=== PATIENT | male | born 1985 | race Caucasian/White ===

== ENCOUNTER 2022-11-11 17:18 | Emergency (ER) | payer OTHER, SELFPAY ==
--- NOTE | ~2022-11-11 | XR_ITS ---
EXAM: XR abdomen/kub 1V DATE: 11/11/2022 19:07 HISTORY: constipation with low abdominal pain X's 3 days . COMPARISON: None available. FINDINGS: Clear lung bases. Normal bowel gas pattern. No organomegaly. No abnormal abdominal calcifi cation. Regional bones and soft tissues normal for age. IMPRESSION: Normal abdominal radiograph findings. Reviewed, dictated and finalized at location K.
[2022-11-11 17:31] VITALS: BP 139/84; PULSE 88; RESP 18; TEMP 36.9; O2SAT 100
--- NOTE | 2022-11-11 17:43 | ED.ABDPAIN ---
HPI - Abdominal Pain General Chief Complaint: Abdominal Pain Stated Complaint: constipation Time Seen by Provider: 11/11/22 17:44 Source: patient Mode of arrival: ambulatory Limitations: no limitations History of Present Illness HPI narrative: patient is a 37-year-old male that presents with abdominal pain and constipation since Thursday. Patient has a history of IBS and states he normally goes to the bathroom 5 to 8 times a day. Patient reports urgency with bowel movements causing him to go and sit on the toilet roughly 15-20 times a day. Patient uses Metamucil daily and dicyclomine as needed from GI doctor. since Thursday patient states he has only had 2 episodes of mucousy bowel movements that were very small. patient states normal bowel movements can be mucousy at times but there is more substance to them. Denies any blood in stool. Denies any urinary symptoms, testicular pain, penile discharge, nausea, vomiting. Patient has also been having episodes of sweating and chills, denies fever. Denies any URI symptoms. Denies any sick contacts. States he has never had a rectal exam or colonoscopy. Reports he requested a stool sample diagnostic test from GI, but has not been able to fill it. Related Data Home Medications Medication Instructions Recorded Confirmed Bacillus coagulans 10 billion cell 10,000,000 cell PO DAILY 01/01/22 11/11/22 capsule,delayed release (Probiotic (B. coagulans)) Allergies Allergy/AdvReac Type Severity Reaction Status Date / Time No Known Allergies Allergy Verified 11/11/22 17:41 Review of Systems Review of Systems: All systems reviewed & are unremarkable except as noted in HPI and below Constitutional: Constitutional: Denies body ache(s), Reports chills, Reports fatigue, Denies fever(s), Denies headache(s), Denies malaise and Denies weakness Eyes: Eyes: Denies blurry vision, Denies irritation and Denies loss of vision ENT: Denies otalgia, Denies headache(s), Denies nasal discharge, Denies sinus pain and Denies sore throat Cardiovascular: Cardiovascular: Denies chest pain, Denies irregular heart rhythm and Denies dyspnea Respiratory: Respiratory: Denies dyspnea Gastrointestinal: Gastrointestinal: Reports abdominal pain, Denies melena, Denies hematochezia, Reports constipation, Denies diarrhea, Reports nausea and Denies vomiting Musculoskeletal: Musculoskeletal: Denies back pain, Denies myalgias and Denies arthralgias Integumentary/Breasts: Skin/Breast: Denies pruritus and Denies rash Neurologic: Denies headache(s), Denies loss of vision and Denies weakness Psychiatric: Psychiatric: Reports no additional psychiatric complaints Endocrine: Endocrine: Denies fatigue PMFSH Past Medical History Medical History (Updated 11/11/22 @ 19:24 by Nola Tran APRN) Diarrhea Obese Tenesmus Tobacco abuse Family History Family History Other Cerebrovascular accident Diabetes mellitus Social History Social History Smoking status: Current some day smoker Tobacco type: e-cigarettes/vaping Alcohol intake: current Alcohol use details: liquor Substance use: never Substance use type: does not use Living arrangements: with family Gender identity (if verbalized by the patient): Male Sexual Orientation (if Verbalized by the Patient): Straight or Heterosexual Spiritual care concerns: No Agree to blood products: Yes Comments At time of signature, agree with nursing past medical, surgical, social and family history. There is no relevant family history pertinent to the presenting complaint. Exam Const: General: cooperative, healthy appearing, comfortable, no acute distress and well nourished Nutritional Appearance: well nourished Orientation/consciousness: patient oriented x3 Limitations: no limitations HENMT: Head: normal to inspection, normoc
== END 2022-11-11 19:28 | disposition home or self-care (01) ==
PROVIDERS: Emergency Provider Nurse Practitioner Family; PCP Family Medicine
DX: K59.00 Constipation, unspecified (principal); Z20.822 Contact with and (suspected) exposure to COVID-19; E66.9 Obesity, unspecified; Z68.29 Body mass index [BMI] 29.0-29.9, adult
CPT/HCPCS: 74018; 87426; 87804; 99213; C9803; G0463

== ENCOUNTER 2022-12-08 07:20 | Outpatient (CLI) | payer OTHER, SELFPAY ==
--- NOTE | ~2022-12-08 | CT_ITS ---
EXAMINATION: CT abdomen pelvis w con DATE: 12/08/2022 07:59 INDICATION: Periumbilical abdominal pain. Weight loss. TECHNIQUE: Computed tomography (CT) of the abdomen and pelvis was performed with 100 mL Omnipaque 350 intravenous contrast. Automated exposure control and iterative reconstruction technique were employe d. The dose-length product was 612.07 mGy-cm. COMPARISON: None. FINDINGS: The visualized portions of the lung bases are clear without pneumonia or pleural effusion. The heart size is normal. No pericardial effusion. The liver, gallbladder, spleen, pancreas, adrenal glands, and right kidney are normal. There is a 6 mm cyst in left kidney. The prostate is mildly enla rged. There are no dilated loops of bowel. The appendix is normal. There is an umbilical hernia conta ining fat. There are no pathologically enlarged lymph nodes. There is no free intraperitoneal fluid. There is mild thoracolumbar spondylosis. IMPRESSION: 1. Umbilical hernia containing fat. Reviewed, dictated and finalized at location A.
== END 2022-12-08 07:21 | disposition home or self-care (01) ==
PROVIDERS: PCP Family Medicine; Visit Provider Nurse Practitioner
DX: R63.4 Abnormal weight loss (principal); R10.33 Periumbilical pain; R19.4 Change in bowel habit; R19.8 Other specified symptoms and signs involving the digestive system and abdomen; K42.9 Umbilical hernia without obstruction or gangrene
CPT/HCPCS: 74177; Q9967

== ENCOUNTER 2022-12-24 00:54 | Day surgery (SDC) | payer OTHER, SELFPAY ==
[2022-12-17 14:32] VITALS: BMI 30.4
--- NOTE | 2022-12-24 09:03 | P.PNAN_ITS ---
Anes - Initial Pre Proc Eval Procedure: Operation Date: 12/24/22 12:30 Proposed Procedures p Esophagogastroduodenoscopy & Colonoscopy - Jese Wilson MD Date/Time: 12/24/22 09:03 Surgeon: Jese Wilson MD Pre Op Diagnosis: abnor.weightloss,periumbilical pain,hemorrhoids Patient Data Age: 37 Gender: M Height: 1.75 m Weight: 93.5 kg Allergies Allergy/AdvReac Type Severity Reaction Status Date / Time No Known Allergies Allergy Verified 12/24/22 11:08 Home Medications Medication Instructions Recorded Confirmed Type dicyclomine 20 mg tablet 20 mg PO TID PRN abdominal 02/18/22 12/17/22 Rx discomfort 1 month #90 tabs ondansetron 4 mg disintegrating 4 mg PO Q6-8H PRN nausea and 11/11/22 12/17/22 Rx tablet vomiting #7 tabs duloxetine 20 mg capsule,delayed 20 mg PO DAILY #30 caps 11/17/22 12/17/22 Rx release hydrocortisone acetate 25 mg 25 mg RECTAL BID #20 ea 11/26/22 12/17/22 Rx rectal suppository hydroxyzine HCl 25 mg tablet 25 mg PO TID PRN nausea and 12/12/22 12/17/22 Rx vomiting #90 tabs Patient hx anesthesia problems: none Family hx anesthesia problems: none Results Review: All pre-operative results and documents have been reviewed as part of the pre- operative evaluation. [facility] Past Medical History Medical History (Updated 12/10/22 @ 15:22 by Erika Cuellar PA-C) Abnormal stool caliber Abnormal weight loss Anal lesion Diarrhea Frequent bowel movements Hemorrhoids Obese Periumbilical pain Renal cyst incidental finding 2022, no f/u necessary Tenesmus Tobacco abuse Family History Family History Other Cerebrovascular accident Diabetes mellitus Social History Social History Smoking status: Former smoker Tobacco type: e-cigarettes/vaping Alcohol intake: current Alcohol use details: socially Substance use: never Substance use type: does not use Lack of Transportation: No Lack of Food: Never True Current Housing: I Have Housing Concerned About Future Housing: No Difficulty Paying Gas/Electric Bills: No Difficulty Paying for Meds: No Currently Unemployed: No Education: High School Diploma/GED Difficulty w/ Childcare or Family Care: No Living arrangements: with family Gender identity (if verbalized by the patient): Male Sexual Orientation (if Verbalized by the Patient): Straight or Heterosexual Spiritual care concerns: No Agree to blood products: Yes Anes - Eval Final PreProcedure Day of Procedure 12/24/22 09:03 Patient weight: obese Heart: regular rate and rhythm Lungs: clear to auscultation and normal air movement Airway: Mallampati scale class II Neurological: alert and oriented Last oral intake: >/= 8 hours ASA classification: II Emergent: no Anesthetic plan: proceed Anesthesia type and monitoring: general GIVS Results Review: All pre-operative results and documents have been reviewed as part of the pre- operative evaluation. Informed Consent: The patient's anesthetic plan and its attendant risks and benefits were discussed with the patient/family/POA. Questions were solicited and answers provided to the satisfaction of the
[2022-12-24 11:09] VITALS: BP 119/86; PULSE 96; RESP 20; TEMP 36.1; O2SAT 100
[2022-12-24] MEDS: LACTATED RINGERS 1,000 ML 150 ML IV CONT (11:29)
--- NOTE | 2022-12-24 11:45 | WPDHPUPDATE1 ---
History and Physical Update Update Date/Time: 12/24/22 11:45 History and Physical has been reviewed, including an updated exam of the patient. There are NO changes in the patient's condition. Risks, benefits, and alternatives have been discussed and questions answered. Patient agrees to proceed with procedure.
--- NOTE | 2022-12-24 11:52 | SUR.OPER ---
EGD start 1152 end 1155, Colonoscopy start 1201
[2022-12-24 12:16] VITALS: BP 108/73; PULSE 78; RESP 20; O2SAT 100
[2022-12-24 12:26] VITALS: BP 112/67; PULSE 76; RESP 18; O2SAT 100
[2022-12-24 12:36] VITALS: BP 110/71; PULSE 78; RESP 20; O2SAT 100
== END 2022-12-24 12:41 | disposition home or self-care (01) ==
PROVIDERS: PCP Family Medicine; Visit Provider Internal Medicine Gastroenterology
PROC: 0DJ08ZZ Inspection of Upper Intestinal Tract, Via Natural or Artificial Opening Endoscopic (ICD-10-PCS; CPT 43235; principal; 2022-12-24 12:30)
DX: K60.2 Anal fissure, unspecified (principal); K64.8 Other hemorrhoids; K57.30 Diverticulosis of large intestine without perforation or abscess without bleeding; Z87.891 Personal history of nicotine dependence; E66.9 Obesity, unspecified; Z68.28 Body mass index [BMI] 28.0-28.9, adult
CPT/HCPCS: 45378; 43239; 88305; J2704; J7120